=== PATIENT | female | born 1995 | race Asian ===

== ENCOUNTER 2017-12-30 04:53 | Emergency (ER) | payer OTHER ==
[~2017-12-30] VITALS: Ht 160 cm; Wt 54.5 kg
[~2017-12-30 04:53] MED LIST: ALDACTONE 25MG25 M1 PO
[2017-12-30 05:00] VITALS: TEMP 98.3
[2017-12-30 05:33] LABS: BASO # 0.1 (0.0-0.2); BASO % 0.8 % (0.0-2.0); EOS # 0.2 (0.0-0.7); EOS % 2.5 % (0-4.0); GRAN # 3.7 (1.4-6.5); GRAN % 57.6 % (42.2-75.2); HEMOGLOBIN 13.6 g/dl (12.5-16.0); LYMPH # 2.1 (1.2-3.4); LYMPH % 31.8 % (20.0-51.0); MEAN CELL VOLUME 91 fl (80.0-100.0); MEAN CORPUSCULAR HEMOGLOBIN 29 pg (27.0-31.0); MEAN CORPUSCULAR HGB CONC 32 g/dl (33.0-37.0); MONO # 0.4 (0.1-0.6); MONO % 6.8 % (1.7-9.3); PLATELET COUNT 205 K/mm3 (130-400); RED BLOOD COUNT 4.64 M/mm3 (4.10-5.30); REDCELL DISTRIBUTION WIDTH-CV 12.4 % (11.5-14.5)
[2017-12-30 05:44] LABS: COLLECTION METHOD CLEAN CATCH
[2017-12-30 05:46] LABS: ALANINE AMINOTRANSFERASE 43 U/L (9-52); ALBUMIN 4.7 gm/dL (3.5-5.0); ALKALINE PHOSPHATASE 47 U/L (50-136); ANION GAP 10 mmol/L (7-16); AST,SGOT 25 U/L (15-37); BILIRUBIN,TOTAL 0.4 mg/dL (0.0-1.0); BLOOD UREA NITROGEN 11 mg/dL (7-17); CALCIUM 8.7 mg/dL (8.4-10.2); CARBON DIOXIDE 27 mmol/L (22-30); CHLORIDE 103 mmol/L (98-107); CREATININE, serum 0.83 mg/dL (0.52-1.25); GLUCOSE 93 mg/dL (74-106); POTASSIUM 3.7 mmol/L (3.4-5.0); SODIUM 140 mmol/L (137-145); TOTAL PROTEIN 7.4 gm/dL (6.4-8.2)
[2017-12-30 05:47] LABS: C-REACTIVE PROTEIN < 0.5 mg/dL (0.0-0.9)
[2017-12-30 05:54] LABS: AMORPHOUS CRYSTAL Present /uL; PH 8 (5-8); URINE APPEARANCE Cloudy; URINE BACTERIA Rare /hpf; URINE BILIRUBIN Negative (NEGATIVE); URINE BLOOD Negative (NEGATIVE); URINE COLOR Yellow; URINE GLUCOSE Negative (NEGATIVE); URINE KETONE Negative (NEGATIVE); URINE LEUKOCYTE ESTERASE Negative (NEGATIVE); URINE NITRATE Negative (NEGATIVE); URINE PROTEIN(semi-quant) Negative (NEGATIVE); URINE RBC 0-2 /hpf; URINE UROBILINOGEN Negative (NEGATIVE)
[2017-12-30 07:18] VITALS: BP 111/70; PULSE 49
== END 2017-12-30 07:18 | disposition home or self-care (01) ==
LOC: COL.ER 04:53
PROVIDERS: Emergency Medicine
DX: R10.31 Right lower quadrant pain (principal)

== ENCOUNTER 2018-05-01 09:10 | Emergency (ER) | payer OTHER ==
[~2018-05-01] VITALS: Ht 160 cm; Wt 50.0 kg
[2018-05-01 09:13] VITALS: BP 127/77; PULSE 63; TEMP 98.2
[2018-05-01] MEDS ORDERED: VITAMIN B COMPL1 SGL PO (09:18)
[2018-05-01 09:43] LABS: BASO % 0.9 % (0.0-2.0); EOS # 0.1 (0.0-0.7); EOS % 1.5 % (0-4.0); GRAN # 2.6 (1.4-6.5); GRAN % 56.9 % (42.2-75.2); HEMATOCRIT 38.6 % (37.0-47.0); HEMOGLOBIN 12.9 g/dl (12.5-16.0); LYMPH # 1.6 (1.2-3.4); LYMPH % 34.5 % (20.0-51.0); MEAN CELL VOLUME 88 fl (80.0-100.0); MEAN CORPUSCULAR HEMOGLOBIN 30 pg (27.0-31.0); MEAN CORPUSCULAR HGB CONC 33 g/dl (33.0-37.0); MONO # 0.3 (0.1-0.6); PLATELET COUNT 184 K/mm3 (130-400); RED BLOOD COUNT 4.37 M/mm3 (4.10-5.30); REDCELL DISTRIBUTION WIDTH-CV 12.2 % (11.5-14.5)
[2018-05-01 09:52] LABS: ALANINE AMINOTRANSFERASE 28 U/L (9-52); ALBUMIN 4.1 gm/dL (3.5-5.0); ALKALINE PHOSPHATASE 45 U/L (50-136); ANION GAP 8 mmol/L (7-16); AST,SGOT 25 U/L (15-37); BILIRUBIN,TOTAL 0.7 mg/dL (0.0-1.0); BLOOD UREA NITROGEN 10 mg/dL (7-17); CALCIUM 8.9 mg/dL (8.4-10.2); CARBON DIOXIDE 26 mmol/L (22-30); CHLORIDE 101 mmol/L (98-107); CREATININE, serum 0.73 mg/dL (0.52-1.25); GLUCOSE 87 mg/dL (74-106); POTASSIUM 3.7 mmol/L (3.4-5.0); SODIUM 136 mmol/L (137-145); TOTAL PROTEIN 6.8 gm/dL (6.4-8.2)
[2018-05-01 09:54] LABS: ACETAMINOPHEN < 10 ug/mL (10-30); ALCOHOL(ethanol),MEDICAL < 10 mg/dL; SALICYLATE < 1.0 mg/dL
[2018-05-01 10:17] LABS: COLLECTION METHOD CLEAN CATCH
[2018-05-01 10:22] LABS: TSH w REFLEX 0.241 uIU/mL (0.465-4.680)
[2018-05-01 10:24] LABS: MUCOUS Present /lpf; PH 6 (5-8); URINE APPEARANCE Clear; URINE BACTERIA None Seen /hpf; URINE BILIRUBIN Negative (NEGATIVE); URINE BLOOD Negative (NEGATIVE); URINE COLOR Yellow; URINE GLUCOSE Negative (NEGATIVE); URINE KETONE Trace (NEGATIVE); URINE LEUKOCYTE ESTERASE Negative (NEGATIVE); URINE NITRATE Negative (NEGATIVE); URINE PROTEIN(semi-quant) Negative (NEGATIVE); URINE RBC 0-2 /hpf; URINE UROBILINOGEN Negative (NEGATIVE)
[2018-05-01 10:38] LABS: TRICYCLIC ANTIDEPRESS URINE NEGATIVE
== END 2018-05-01 12:21 | disposition home or self-care (01) ==
LOC: COL.ER 09:10
PROVIDERS: Physician Assistant
DX: F41.9 Anxiety disorder, unspecified (principal); R94.6 Abnormal results of thyroid function studies

== ENCOUNTER → 2019-02-25 | Outpatient (CLI) | payer OTHER ==
[~2019-02-25] MED LIST changes: +VITAMIN B COMPL1 SGL PO
== END ==
LOC: COL.RAD 14:05
DX: E04.1 Nontoxic single thyroid nodule (principal)

== ENCOUNTER → 2019-03-09 | Outpatient (CLI) | payer OTHER ==
[~2019-03-09] VITALS: Ht 160 cm; Wt 49.8 kg
[~2019-03-09] MED LIST changes: +ZOLOFT 50MG50 MG PO
[2019-03-09 09:17] VITALS: BP 102/68; PULSE 62
[2019-03-09 10:15] VITALS: BP 134/69; PULSE 59
--- NOTE | 2019-03-09 10:32 | NUR ---
PT TAKEN DOWN TO V AND BROTHER DROVE HER HOME.
== END ==
LOC: COL.RAD 09:00
DX: E04.1 Nontoxic single thyroid nodule (principal)